=== PATIENT | female | born 1975 | race Caucasian/White ===

== ENCOUNTER → 2017-09-21 14:37 | Outpatient (CLI) | payer OTHER, SELFPAY ==
[2017-09-21 15:48] LABS: Free T4, Direct Thyroxine 0.91 ng/dL (0.78-2.19)
[2017-09-21 16:02] LABS: Thyroid Stimulating Hormone 2.78 uIU/mL (0.47-4.68)
[2017-09-23 15:46] LABS: Triiodothyronine T3 Total 77 ng/dL (76-181)
== END ==
PROVIDERS: Family Provider Internal Medicine; PCP Internal Medicine; Visit Provider Internal Medicine Endocrinology, Diabetes & Metabolism
DX: E05.90 Thyrotoxicosis, unspecified without thyrotoxic crisis or storm (principal)
CPT/HCPCS: 36415; 84439; 84443; 84480

== ENCOUNTER → 2017-11-24 13:32 | Outpatient (CLI) | payer OTHER, SELFPAY ==
[2017-11-24 14:40] LABS: Free T4, Direct Thyroxine 0.92 ng/dL (0.78-2.19)
[2017-11-24 14:54] LABS: Thyroid Stimulating Hormone 2.88 uIU/mL (0.47-4.68)
[2017-11-26 15:10] LABS: Triiodothyronine T3 Total 84 ng/dL (76-181)
== END ==
PROVIDERS: Family Provider Internal Medicine; PCP Internal Medicine; Visit Provider Internal Medicine Endocrinology, Diabetes & Metabolism
DX: E05.90 Thyrotoxicosis, unspecified without thyrotoxic crisis or storm (principal)
CPT/HCPCS: 36415; 84439; 84443; 84480

== ENCOUNTER → 2018-03-22 09:19 | Outpatient (CLI) | payer OTHER, SELFPAY ==
--- NOTE | 2018-03-22 | DI.MG.S_ITS ---
BILATERAL DIGITAL SCREENING MAMMOGRAM 3D/2D WITH CAD: 03/22/2018 CLINICAL: Routine screening. Comparison is made to exams dated: 01/03/2015 mammogram, 02/25/2014 mammogram, and 01/17/2013 mammogram - [facility]. The tissue of both breasts is extremely dense, which lowers the sensitivity of mammography. Current study was also evaluated with a Computer Aided Detection (CAD) system. No significant masses, calcifications, or other findings are seen in either breast. There has been no significant interval change. IMPRESSION: NEGATIVE There is no mammographic evidence of malignancy. A 1 year screening mammogram is recommended. This exam was interpreted at Station ID: [id number]. NOTE: For mammograms, a report in lay terms will be sent to the patient. Approximately 15% of breast malignancies will not be visualized mammographically. In the management of a palpable breast mass, a negative mammogram must not discourage biopsy of a clinically suspicious lesion. Electronically Signed By: Carlos Enrique helm/naima:03/22/2018 16:50:14 letter sent: Normal Exam ACR BI-RADS Category 1: Negative 3341F
== END ==
PROVIDERS: Family Provider Internal Medicine; PCP Internal Medicine; Visit Provider Internal Medicine
DX: Z12.31 Encounter for screening mammogram for malignant neoplasm of breast (principal)
CPT/HCPCS: 77063; 77067

== ENCOUNTER 2018-05-04 09:25 | Emergency (ER) | payer OTHER, SELFPAY ==
[2018-05-04 09:45] VITALS: BP 119/82; PULSE 86; RESP 16; TEMP 36.6; O2SAT 99
--- NOTE | 2018-05-04 10:20 | ED_ITS ---
HPI - Headache General Chief Complaint: Headache Stated Complaint: BAD HEADACHE, VOMITING, NUMBNESS RIGHT CHEEK Time Seen by Provider: 05/04/18 09:50 Source: patient Mode of arrival: ambulatory Limitations: no limitations History of Present Illness HPI Narrative: Patient is an otherwise healthy 42-year-old female here for evaluation of headache. She stated that the symptoms started this morning. He started very shortly after she woke up. She states she has had headaches in the past but not like this. States that was bilateral and a pressure. She also stated that she had some tingling on the right side of her face. Does have some sinus congestion. No sore throat. No fevers. No neck pain. Has not tried anything for symptoms prior to arrival. Related Data Home Medications Medication Instructions Recorded Confirmed pimecrolimus 1 applic TOPICAL BID 05/04/18 05/04/18 Allergies Allergy/AdvReac Type Severity Reaction Status Date / Time No Known Drug Allergies Allergy Unknown Unverified 07/20/17 12:45 [NO KNOWN DRUG ALLERGIES] Review of Systems Constitutional Denies fever(s), Reports headache(s) and Denies weakness ENT Ears, Nose, Mouth, and Throat: Denies vertigo, Denies dizziness, Reports headache(s), Denies neck pain, Denies disequilibrium, Reports sinus pain, Reports sinus pressure and Denies sore throat Cardiovascular Denies chest pain, Denies syncope and Denies dyspnea Respiratory Denies dyspnea Gastrointestinal Gastrointestinal: Denies abdominal pain, Denies nausea and Denies vomiting Genitourinary Denies dysuria Musculoskeletal Denies neck pain and Reports tingling (Right-sided face) Integumentary/Breasts Denies rash Neurologic Denies behavioral changes, Denies confusion, Denies vertigo, Denies dizziness, Denies syncope, Reports headache(s), Denies lack of coordination, Denies focal weakness, Denies other visual disturbances, Denies sensory deficit, Reports tingling (Right-sided face), Denies disequilibrium and Denies weakness Psychiatric Denies behavioral changes and Denies confusion Hematologic/Lymphatic Comments: Not on anticoagulation PFSH Medical History Healthy adult (Acute) Surgical History History of third molar tooth extraction Status post delivery (11/30/15) Family History Father Age: 72 Heart disease Mother Age: 73 High cholesterol Social History Smoking Status: Never smoker Exam Initial Vital Signs Initial Vital Signs: Vital Signs Temperature 97.8 F 05/04/18 09:45 Pulse Rate 86 05/04/18 09:45 Respiratory Rate 16 05/04/18 09:45 Blood Pressure 119/82 05/04/18 09:45 Pulse Oximetry 99 05/04/18 09:45 Const General: cooperative, healthy appearing, comfortable, well developed, well groomed and No acute distress Orientation: alert, awake and oriented x3 HENMT Head: normal to inspection and normocephalic Ears: TM's normal bilaterally Eyes Pupils: PERRL EOM: EOM intact bilaterally Neck Neck: no meningeal signs Resp Effort & Inspection: normal respiratory effort Auscultation: clear to auscultation bilaterally Cardio Rate: regular rate Pulses: radial pulses present GI Inspection: non-distended Skin Lesions: no lesions Rashes: no rashes Neuro General: alert, awake, oriented x3 and CN's II-XI intact bilaterally Cognition: normal cognition Speech: speech normal Gait: normal gait Motor: muscle tone normal throughout Sensory Exam: no sensory deficits noted and other Extrem General: normal to inspection and capillary refill normal Psych Appearance: grossly normal and well kempt Course Orders Ordered: ED Orders 05/04/18 11:04 CT head/brain wo con Stat Vital Signs - 8 hr 05/04/18 12:03 Pulse Rate 68 Respiratory Rate 18 Blood Pressure [Left Arm] 111/65 Pulse Oximetry 100 MDM - Headache Imaging Data CT scan - head: Radiologist's impression: [place] [id number] CT Scan Report Signed Patient: Linda Garza [facility]#: [id number] : 1975Acct:[id number] Age/Sex: 42 / FDate of Service: 05/04/18 Loc: ED Accession Number: [id number] Procedure: CT head/brain wo con Ordering Provider: Florian Snow D.O. PROCEDURE: CT HEAD/BRAIN WO CON INDICATIONS: headache TECHNIQUE: Noncontrast 4.5 mm thick angled axial sections acquired from the foramen magnum to the vertex, with coronal and sagittal reformats. For radiation dose reduction, the following was used: automated exposure control, adjustment of mA and/or kV according to patient size. COMPARISON: None. FINDINGS: Image quality: Streak artifact from adjacent bone partially obscures the ankur and posterior fossa. Otherwise excellent. CSF spaces: Basal cisterns are patent. No extra-axial fluid collections. Ventricles are normal in size and shape. Brain: No midline shift. No intracranial masses or hemorrhage. Villegas-white matter interface is normal. Mild subcortical and periventricular white matter hypoattenuation is nonspecific but can be seen with chronic microvascular ischemic changes. Skull and face: Calvarium and visualized facial bones are intact, without suspicious lesions. Sinuses: Visualized sinuses and mastoids are clear. IMPRESSION: No acute intracranial abnormality. Dictated by: Castro Hairston M.D. on 05/04/2018 at 11:05 MDM Narrative Medical decision making narrative: By the time I evaluated her here in the emergency department she reported a much improvement of her symptoms if not complete resolution. She was still having some tingling on the right side of her face but no sensory deficits within testing. Patient's head CT was negative. This was done within 6 hr of the onset of her symptoms. Had a discussion with her regarding her symptoms. We did discuss lumbar puncture. Informed her that this would complete the workup for subarachnoid hemorrhage however after the discussion the patient opted to not have a lumbar puncture. I do not feel like this is an unreasonable course of action given her symptoms. We did discuss decongestants because she was having some sinus congestion. Do not know the exact etiology of her headache however will hold on further workup for now. The patient was given return precautions. At the time of discharge she did report a complete resolution of all of her presenting symptoms. She expressed understanding and agreement this plan. Discharge Plan Departure Patient Disposition: Home Clinical Impression: Headache Discharge Date/Time: 05/04/18 12:13 Interventions: ED Discharge Assessment Last Done: 05/04/18 12:12 Instructions: DI for Headache Activity Restrictions/Additional Instructions: recommend taking Tylenol/Motrin for any headaches. Also recommend starting a decongestant such as Claritin like we discussed. Return to the emergency department for any new or worsening symptoms Like we discussed. Prescriptions: No Action pimecrolimus 1 % Cream 1 applic TOPICAL BID RF: 0
--- NOTE | 2018-05-04 11:04 | DI.CT.S_ITS ---
PROCEDURE: CT HEAD/BRAIN WO CON INDICATIONS: headache TECHNIQUE: Noncontrast 4.5 mm thick angled axial sections acquired from the foramen magnum to the vertex, with coronal and sagittal reformats. For radiation dose reduction, the following was used: automated exposure control, adjustment of mA and/or kV according to patient size. COMPARISON: None. FINDINGS: Image quality: Streak artifact from adjacent bone partially obscures the ankur and posterior fossa. Otherwise excellent. CSF spaces: Basal cisterns are patent. No extra-axial fluid collections. Ventricles are normal in size and shape. Brain: No midline shift. No intracranial masses or hemorrhage. Villegas-white matter interface is normal. Mild subcortical and periventricular white matter hypoattenuation is nonspecific but can be seen with chronic microvascular ischemic changes. Skull and face: Calvarium and visualized facial bones are intact, without suspicious lesions. Sinuses: Visualized sinuses and mastoids are clear. IMPRESSION: No acute intracranial abnormality. Dictated by: Castro Hairston M.D. on 05/04/2018 at 11:05 Approved by: Castro Hairston M.D. on 05/04/2018 at 11:20
[2018-05-04 12:03] VITALS: BP 111/65; PULSE 68; RESP 18; O2SAT 100
== END 2018-05-04 12:13 | disposition home or self-care (01) ==
PROVIDERS: Emergency Provider Emergency Medicine; Family Provider Internal Medicine; PCP Internal Medicine
DX: R51 Headache (principal)
CPT/HCPCS: 70450; 99282; 99284

== ENCOUNTER → 2018-08-23 08:31 | Outpatient (CLI) | payer OTHER, SELFPAY ==
--- NOTE | 2018-08-23 | DI.US.S_ITS ---
PROCEDURE: US THYROID INDICATIONS: THYROIDITIS TECHNIQUE: Real-time scanning was performed of the thyroid gland, with image documentation. COMPARISON: None. FINDINGS: Right: Thyroid lobe measures 5.1 x 1.5 x 1.5 cm, and is diffusely heterogeneous in echotexture. Moderate hyperemia. Left: Thyroid lobe measures 4.3 x 0.8 x 1.2 cm, and is diffusely heterogeneous in echotexture. Moderate hyperemia. Isthmus: 3.2 mm thick. IMPRESSION: Diffusely heterogeneous and hyperemic thyroid which can be associated with thyroiditis. Dictated by: Vernon GUNDERSON Interpreted: Noah Reyna MD on 08/23/2018 at 16:52 Approved by: Noah Reyna M.D. on 08/23/2018 at 17:20
== END ==
PROVIDERS: PCP Internal Medicine; Visit Provider Internal Medicine
DX: E06.9 Thyroiditis, unspecified (principal)
CPT/HCPCS: 76536

== ENCOUNTER → 2018-09-08 12:29 | Outpatient (CLI) | payer OTHER, SELFPAY ==
[2018-09-08 14:23] LABS: Free T4, Direct Thyroxine 0.77 ng/dL (0.78-2.19)
[2018-09-08 14:37] LABS: Thyroid Stimulating Hormone 3.49 uIU/mL (0.47-4.68)
[2018-09-12 14:45] LABS: Thyroid Peroxidase Antibodies 5 IU/mL (< 9)
[2018-09-12 16:13] LABS: Triiodothyronine T3 Total 94 ng/dL (76-181)
== END ==
PROVIDERS: PCP Internal Medicine; Visit Provider Internal Medicine Endocrinology, Diabetes & Metabolism
DX: E05.90 Thyrotoxicosis, unspecified without thyrotoxic crisis or storm (principal)
CPT/HCPCS: 36415; 83519; 84439; 84443; 84480; 86376

== ENCOUNTER → 2018-09-29 07:28 | Outpatient (CLI) | payer OTHER, SELFPAY ==
--- NOTE | 2018-09-29 | DI.US.S_ITS ---
PROCEDURE: US PELVIC COMPLETE INDICATIONS: ABDOMINAL PAIN TECHNIQUE: Real-time scanning was performed of the pelvic organs, with image documentation. Additional endovaginal scanning was necessary due to incomplete visualization of the adnexal and endometrial structures by transabdominal scanning. COMPARISON: None. FINDINGS: Transabdominal scanning: Limited scanning through the kidneys shows no hydronephrosis. No pathologic free abdominal or pelvic fluid. Endovaginal scanning: Uterus: Uterus is normal in size at 6.8 x 4.8 x 3.6 cm. The endometrium measures 6.7 mm in combined thickness. Ovaries: Normal ovaries bilaterally measuring 1.8 x 1.6 x 1.2 cm on the right and 2.3 x 1.8 x 2.3 cm on the left. IMPRESSION: No source for pelvic pain identified. Dictated by: Vernon GUNDERSON Interpreted: Eleni Guthrie MD on 09/29/2018 at 10:16 Approved by: Eleni Guthrie M.D. on 09/29/2018 at 15:59
--- NOTE | 2018-09-29 | DI.US.S_ITS ---
PROCEDURE: US ABDOMEN COMPLETE INDICATIONS: ABDOMINAL PAIN TECHNIQUE: Real-time scanning was performed of the abdominal and retroperitoneal organs, with image documentation. COMPARISON: [facility], US, ABDOMEN COMPLETE, 05/17/2017, 7:26. FINDINGS: Liver: Liver is normal in size and homogeneous in echotexture. Gallbladder: No findings of gallstones or sludge are seen. The gallbladder wall is not thickened, measuring 3 mm or less. No specific pericholecystic fluid is seen. The sonographic Castellon sign is negative. Biliary ducts: Intrahepatic bile ducts are non-dilated. Extrahepatic bile duct caliber measures 2-3 mm. Normal is 6-7 mm or less in diameter, or 10 mm or less post-cholecystectomy. Pancreas: Visualized portions of the pancreas are sonographically normal. Spleen: Spleen is normal in size and homogeneous in echotexture. Kidneys: Kidneys are normal in size. Right kidney measures 10.2 cm long; left kidney measures 11.5 cm long. No solid masses. There is mild to moderate right-sided hydronephrosis with pelvic caliectasis. This improves postvoid, but not does not resolve. There is a likely stone at the inferior pole of the right kidney that measures up to 5 mm. No left-sided hydronephrosis is seen. Aorta: Visualized aorta is normal in caliber at less than 3 cm. Iliacs: Proximal common iliac arteries are normal in caliber at less than 2.5 cm. IVC: Intrahepatic inferior vena cava is patent. Miscellaneous: No free abdominal fluid. The prevoid bladder volume is 353 cc. The postvoid bladder volume is 3 cc. Bilateral ureteral jets are seen into the bladder. IMPRESSION: Mild to moderate right-sided hydronephrosis, which improves postvoid, but does not resolve. Likely 4 mm stone at the inferior pole of the right kidney. Dictated by: Marlo Joseph M.D. on 09/29/2018 at 9:56 Approved by: Marlo Joseph M.D. on 09/29/2018 at 10:00
== END ==
PROVIDERS: PCP Internal Medicine; Visit Provider Internal Medicine
DX: R10.9 Unspecified abdominal pain (principal); N13.30 Unspecified hydronephrosis
CPT/HCPCS: 76700; 76856

== ENCOUNTER → 2018-10-06 11:07 | Outpatient (CLI) | payer OTHER, SELFPAY ==
[2018-10-06 13:29] LABS: Free T4, Direct Thyroxine 0.81 ng/dL (0.78-2.19)
[2018-10-06 13:44] LABS: Thyroid Stimulating Hormone 3.51 uIU/mL (0.47-4.68)
[2018-10-11 15:21] LABS: Triiodothyronine T3 Total 88 ng/dL (76-181)
== END ==
PROVIDERS: PCP Internal Medicine; Visit Provider Internal Medicine Endocrinology, Diabetes & Metabolism
DX: E05.90 Thyrotoxicosis, unspecified without thyrotoxic crisis or storm (principal); E03.8 Other specified hypothyroidism; E06.3 Autoimmune thyroiditis
CPT/HCPCS: 36415; 83519; 84439; 84443; 84480

== ENCOUNTER → 2018-11-06 10:56 | Outpatient (CLI) | payer OTHER, SELFPAY ==
[2018-11-06 12:12] LABS: Free T3, Triiodothyronine Free 2.93 pg/mL (2.77-5.27); Free T4, Direct Thyroxine 0.79 ng/dL (0.78-2.19)
[2018-11-06 12:25] LABS: Thyroid Stimulating Hormone 3.92 uIU/mL (0.47-4.68)
== END ==
PROVIDERS: PCP Internal Medicine; Visit Provider Internal Medicine Endocrinology, Diabetes & Metabolism
DX: E05.90 Thyrotoxicosis, unspecified without thyrotoxic crisis or storm (principal); E03.8 Other specified hypothyroidism; E06.3 Autoimmune thyroiditis
CPT/HCPCS: 36415; 84439; 84443; 84481

== ENCOUNTER → 2018-12-04 10:12 | Outpatient (CLI) | payer OTHER, SELFPAY ==
[2018-12-04 11:58] LABS: Free T4, Direct Thyroxine 0.95 ng/dL (0.78-2.19)
[2018-12-04 12:12] LABS: Thyroid Stimulating Hormone 3.28 uIU/mL (0.47-4.68)
[2018-12-22 10:42] LABS: Triiodothyronine T3 Total 87
== END ==
PROVIDERS: PCP Internal Medicine; Visit Provider Internal Medicine Endocrinology, Diabetes & Metabolism
DX: E05.90 Thyrotoxicosis, unspecified without thyrotoxic crisis or storm (principal); E03.8 Other specified hypothyroidism; E06.3 Autoimmune thyroiditis
CPT/HCPCS: 36415; 84439; 84443; 84480

== ENCOUNTER → 2019-01-02 10:53 | Outpatient (CLI) | payer OTHER, SELFPAY ==
[2019-01-02 12:19] LABS: Free T4, Direct Thyroxine 1.06 ng/dL (0.78-2.19)
[2019-01-02 12:33] LABS: Thyroid Stimulating Hormone 3.35 uIU/mL (0.47-4.68)
[2019-01-04 15:00] LABS: Triiodothyronine T3 Total 98 ng/dL (76-181)
== END ==
PROVIDERS: PCP Internal Medicine; Visit Provider Internal Medicine Endocrinology, Diabetes & Metabolism
DX: E05.90 Thyrotoxicosis, unspecified without thyrotoxic crisis or storm (principal); E03.8 Other specified hypothyroidism; E06.3 Autoimmune thyroiditis
CPT/HCPCS: 36415; 84439; 84443; 84480

== ENCOUNTER → 2019-02-08 08:39 | Outpatient (CLI) | payer OTHER, SELFPAY ==
[2019-02-08 10:18] LABS: Free T4, Direct Thyroxine 1.04 ng/dL (0.78-2.19)
[2019-02-08 10:31] LABS: Thyroid Stimulating Hormone 4.39 uIU/mL (0.47-4.68)
[2019-02-10 18:08] LABS: Triiodothyronine T3 Total 98 ng/dL (76-181)
== END ==
PROVIDERS: PCP Internal Medicine; Visit Provider Internal Medicine Endocrinology, Diabetes & Metabolism
DX: E05.90 Thyrotoxicosis, unspecified without thyrotoxic crisis or storm (principal); E03.8 Other specified hypothyroidism; E06.3 Autoimmune thyroiditis
CPT/HCPCS: 36415; 84439; 84443; 84480

== ENCOUNTER → 2019-04-05 08:05 | Outpatient (CLI) | payer OTHER, SELFPAY ==
--- NOTE | 2019-04-05 | DI.MG.S_ITS ---
BILATERAL DIGITAL SCREENING MAMMOGRAM 3D/2D WITH CAD: 04/05/2019 CLINICAL: Routine screening. Family history of breast cancer. Comparison is made to exams dated: 03/22/2018 mammogram - [facility], 01/03/2015 mammogram, and 02/25/2014 mammogram - [facility]. The tissue of both breasts is extremely dense, which lowers the sensitivity of mammography. Current study was also evaluated with a Computer Aided Detection (CAD) system. No significant masses, calcifications, or other findings are seen in either breast. There has been no significant interval change. IMPRESSION: NEGATIVE There is no mammographic evidence of malignancy. A 1 year screening mammogram is recommended. This exam was interpreted at Station ID: [id number]. NOTE: For mammograms, a report in lay terms will be sent to the patient. Approximately 15% of breast malignancies will not be visualized mammographically. In the management of a palpable breast mass, a negative mammogram must not discourage biopsy of a clinically suspicious lesion. Electronically Signed By: Lan terrazas/naima:04/05/2019 09:22:46 letter sent: Normal Exam ACR BI-RADS Category 1: Negative 3341F
== END ==
PROVIDERS: PCP Internal Medicine; Visit Provider Internal Medicine
DX: Z12.31 Encounter for screening mammogram for malignant neoplasm of breast (principal); Z80.3 Family history of malignant neoplasm of breast
CPT/HCPCS: 77063; 77067

== ENCOUNTER → 2019-06-27 07:25 | Outpatient (CLI) | payer OTHER, SELFPAY ==
[2019-06-27 08:54] LABS: Free T4, Direct Thyroxine 0.75 ng/dL (0.78-2.19)
[2019-06-28 06:36] LABS: Triiodothyronine T3 Total 94 ng/dL (71-180)
== END ==
PROVIDERS: PCP Internal Medicine; Referring Provider Internal Medicine Endocrinology, Diabetes & Metabolism; Visit Provider Internal Medicine Endocrinology, Diabetes & Metabolism
DX: E05.90 Thyrotoxicosis, unspecified without thyrotoxic crisis or storm (principal); E03.8 Other specified hypothyroidism; E06.3 Autoimmune thyroiditis
CPT/HCPCS: 36415; 84439; 84443; 84480

== ENCOUNTER 2019-12-16 11:19 | Emergency (ER) | payer OTHER, SELFPAY ==
[2019-12-16] VITALS (7 sets, daily range): BP systolic 100–145; BP diastolic 55–73; PULSE 84–105; RESP 20; TEMP 37.9; O2SAT 96–100; BMI 19.7
--- NOTE | 2019-12-16 11:33 | ED_ITS ---
HPI - Abdominal Pain General Chief Complaint: Abdominal Pain Stated Complaint: abdominal pain diverticulitis per phys Time Seen by Provider: 12/16/19 11:22 Source: patient Mode of arrival: Ambulatory Limitations: no limitations History of Present Illness HPI narrative: Patient is a 44-year-old female who presents with severe abdominal pain. She was seen evaluated at [facility] where she had a CT and blood work done at 9:[address] showed diverticulitis without abscess or perforation she was discharged home with antibiotics however on the drive she has severe intense pain in emergency department. She has been having pain off and on for about a week but it seemed to get worse last evening. She is noted to have a low-grade fever here in the emergency department MD complaint: abdominal pain Onset (ago): day(s) Pain Consistency: constant Severity scale (1-10): >10 Quality: stabbing and sharp Radiation: RLQ Migration to: no migration Relieving factors: nothing Exacerbating factors: nothing Related Data Home Medications Medication Instructions Recorded Confirmed pimecrolimus 1 applic TOPICAL BID 05/04/18 05/04/18 Previous Rx's Medication Instructions Recorded ketorolac 10 mg PO TID PRN #10 tab 12/16/19 ondansetron 4 mg PO Q8H PRN #10 tab 12/16/19 Allergies Allergy/AdvReac Type Severity Reaction Status Date / Time No Known Drug Allergies Allergy Unknown Unverified 07/20/17 12:45 [NO KNOWN DRUG ALLERGIES] Review of Systems Review of Systems Narrative: GENERAL: Denies chills, fatigue, malaise, fever, sweats, travel HEENT: Denies sinus pain, ear pain, sore throat, difficulty swallowing, neck pain RESPIRATORY: Denies dyspnea, cough, wheezing, hemoptysis, sputum. CARDIOVASCULAR: Denies chest pain, palpitations, orthopnea, edema GASTROINTESTINAL: See HPI : Denies dysuria, frequency, incontinence, hematuria, urinary retention, flank pain. MUSCULOSKELETAL: Denies weakness, joint pain, or bony pain SKIN: No rash, no erythema, no pruritus NEUROLOGIC: Denies weakness, dizziness, headache, numbness, change in speech, confusion PSYCHIATRIC: No concerning psychosocial issues. 12 point review of systems is negative except for those stated above and HPI Patient History Medical History Healthy adult (Acute) Surgical History History of third molar tooth extraction Status post delivery (11/30/15) Family History Father Age: 73 Heart disease Mother Age: 74 High cholesterol Social History Smoking Status: Never smoker Smoking Status: Never smoker Substance Use Type: does not use Exam Initial Vital Signs Initial Vital Signs: Vital Signs Temperature 100.2 F H 12/16/19 11:30 Pulse Rate 100 H 12/16/19 11:30 Respiratory Rate 20 12/16/19 11:30 Blood Pressure 145/73 H 12/16/19 11:30 Pulse Oximetry 99 12/16/19 11:30 GENERAL: Crying female appears in severe pain HEENT: Head atraumatic,EOMI, pupils reactive, face symmetric, moist mucous membranes CARDIOVASCULAR: Regular rate and rhythm without murmurs, rubs or gallops. RESPIRATORY: Breath sounds equal bilaterally, no wheezes rales or rhonchi. ABDOMEN: Soft, tender all across the lower abdomen no distention more tender on right lower quadrant than left EXTREMITIES: Normal range of motion, no clubbing or edema. Neurovascularly intact NEUROLOGICAL: Alert and oriented x4.Normal gait and speech. SKIN: Warm, dry, no laceration, no petechiae, no rashes or lesions. Course Orders Ordered: ED Orders 12/16/19 11:28 Complete Blood Count AUTO DIFF Stat Comprehensive Metabolic Panel Stat Lactate (Lactic Acid) Stat Lipase Stat 12/16/19 11:44 CT abdomen pelvis wo con Stat 12/16/19 11:58 Urine Culture Stat Urine Microscopic Stat 12/16/19 12:10 Blood Culture Stat Discontinued Medications Sodium Chloride (Normal Saline 0.9%) 1,000 mls @ 150 mls/hr IV CONT JAKE Last Admin: 12/16/19 11:50 Dose: 150 mls/hr Documented by: ALE Levofloxacin (Levaquin) 750 mg in 150 mls @ 100 mls/hr IV NOW ONE Stop: 12/16/19 12:59 Last Infusion: 12/16/19 15:09 Dose: 0 mls/hr Documented by: Admin: 12/16/19 13:38 Dose: 100 mls/hr Documented by: ALE Metronidazole (Flagyl) 500 mg in 100 mls @ 100 mls/hr IV NOW ONE Stop: 12/16/19 12:30 Last Infusion: 12/16/19 13:30 Dose: 0 mls/hr Documented by: Admin: 12/16/19 11:50 Dose: 100 mls/hr Documented by: ALE Ketorolac Tromethamine (Toradol) 30 mg IV NOW ONE Stop: 12/16/19 12:48 Last Admin: 12/16/19 12:54 Dose: 30 mg Documented by: ALE Morphine Sulfate (Morphine) 4 mg IV NOW ONE Stop: 12/16/19 11:30 Last Admin: 12/16/19 11:35 Dose: 4 mg Documented by: ALE Ondansetron HCl (Zofran) 4 mg IV NOW ONE Stop: 12/16/19 11:39 Last Admin: 12/16/19 11:50 Dose: 4 mg Documented by: ALE Consultations Time: 11:45 Vital Signs Vital signs: Vital Signs - 8 hr 12/16/19 11:30 12/16/19 12:45 12/16/19 13:00 Temperature 100.2 F H Pulse Rate 100 H 105 H 84 Respiratory Rate 20 Blood Pressure 145/73 H 116/59 L Pulse Oximetry 99 96 100 12/16/19 13:30 12/16/19 14:00 12/16/19 14:30 Temperature Pulse Rate 92 H 97 H 100 H Respiratory Rate Blood Pressure 103/56 L 109/59 L 105/55 L Pulse Oximetry 96 96 96 12/16/19 15:00 Temperature Pulse Rate 95 H Respiratory Rate Blood Pressure 100/55 L Pulse Oximetry 97 MDM - Abdominal Pain Lab Data Attestation: I reviewed the patient's lab results. Result diagrams: 12/16/19 11:28 12/16/19 11:28 Labs: Lab Results 12/16/19 12/16/19 12/16/19 Range/Units 11:28 11:28 11:28 WBC 17.6 H (4.5-11.0) X10^3/uL RBC 4.67 (4.0-5.2) X10^6/uL Hgb 14.3 (12.0-16.0) g/dL Hct 42.8 (36-46) % MCV 91.5 (80-100) fL MCH 30.5 (26-34) PG MCHC 33.3 (30-36) % RDW 12.3 (11.6-14.8) % Plt Count 307 (150-400) X10^3/uL Neut % (Auto) 86.7 H (50-75) % Lymph % (Auto) 5.5 L (25-40) % [place] % (Auto) 7.4 (3-14) % Eos % (Auto) 0.1 L (2-4) % Baso % (Auto) 0.3 (0-2) % Neut # (Auto) 57759 H (2899-2903) /uL Lymph # (Auto) 1000 L (5854-4389) /uL [place] # (Auto) 1300 H (0-900) /uL Eos # (Auto) 0 (0-450) /uL Baso # (Auto) 0 (0-100) /uL Sodium 137 (137-145) mmol/L Potassium 3.6 (3.4-5.1) mmol/L Chloride 102 (98-107) mmol/L Carbon Dioxide 26 (22-32) mmol/L BUN 11 (7-17) mg/dL Creatinine 0.67 (0.52-1.04) mg/dL Estimated GFR > 60.0 (>60) mL/min BUN/Creatinine Ratio 16.4 (6-22) Glucose 111 H (70-100) mg/dL Lactate 1.9 (0.7-2.1) mmol/L Calcium 9.6 (8.4-10.2) mg/dL Total Bilirubin 1.6 H (0.2-1.3) mg/dL AST 23 (14-36) IU/L ALT 17 (<35) IU/L Alkaline Phosphatase 75 (38-126) U/L Total Protein 8.3 H (6.3-8.2) g/dL Albumin 4.8 (3.5-5.0) g/dL Globulin 3.5 (1.7-4.1) g/dL Albumin/Globulin Ratio 1.4 (1.0-2.8) Lipase 87 (23-300) U/L Urine RBC (0-5/HPF) Urine WBC (0-5/HPF) Ur Squamous Epith Cells (0-5/HPF) Urine Bacteria (None) Ur Culture Indicated? 12/16/19 Range/Units 11:58 WBC (4.5-11.0) X10^3/uL RBC (4.0-5.2) X10^6/uL Hgb (12.0-16.0) g/dL Hct (36-46) % MCV (80-100) fL MCH (26-34) PG MCHC (30-36) % RDW (11.6-14.8) % Plt Count (150-400) X10^3/uL Neut % (Auto) (50-75) % Lymph % (Auto) (25-40) % [place] % (Auto) (3-14) % Eos % (Auto) (2-4) % Baso % (Auto) (0-2) % Neut # (Auto) (6315-1103) /uL Lymph # (Auto) (4221-5158) /uL [place] # (Auto) (0-900) /uL Eos # (Auto) (0-450) /uL Baso # (Auto) (0-100) /uL Sodium (137-145) mmol/L Potassium (3.4-5.1) mmol/L Chloride (98-107) mmol/L Carbon Dioxide (22-32) mmol/L BUN (7-17) mg/dL Creatinine (0.52-1.04) mg/dL Estimated GFR (>60) mL/min BUN/Creatinine Ratio (6-22) Glucose (70-100) mg/dL Lactate (0.7-2.1) mmol/L Calcium (8.4-10.2) mg/dL Total Bilirubin (0.2-1.3) mg/dL AST (14-36) IU/L ALT (<35) IU/L Alkaline Phosphatase (38-126) U/L Total Protein (6.3-8.2) g/dL Albumin (3.5-5.0) g/dL Globulin (1.7-4.1) g/dL Albumin/Globulin Ratio (1.0-2.8) Lipase (23-300) U/L Urine RBC 0-1/hpf (0-5/HPF) Urine WBC 1-5/hpf (0-5/HPF) Ur Squamous Epith Cells 0-1 /hpf (0-5/HPF) Urine Bacteria Occasional (0-1) (None) Ur Culture Indicated? Specimen cultured Point of care testing: Urine Dip Bedside Urine Glucose Negative Bedside Urine Bilirubin - Negative Bedside Urine Ketone + 15 Urine Specific [place] 1.005 Bedside Urine Occult Blood + Bedside Urine pH 7.5 Bedside Urine Protein - Negative Bedside Urine Urobilinogen - Negative Bedside Urine Nitrite - Negative Bedside Urine Leukocytes ++ [address] scan - abdomen/pelvis: Radiologist's Impression: PROCEDURE: CT ABDOMEN PELVIS WO CON INDICATIONS: increased pain known diverticulitis TECHNIQUE: 5 mm thick sections acquired from the diaphragms to the symphysis. 5 mm coronal and sagittal reformats were performed. For radiation dose reduction, the following was used: automated exposure control, adjustment of mA and/or kV according to patient size. COMPARISON: [facility], [place], US ABDOMEN COMPLETE, 09/29/2018, 8:11. [facility], [place], US PELVIC COMPLETE, 09/29/2018, 8:05. FINDINGS: Image quality: Excellent. ABDOMEN: Lung bases: Lung bases are clear. Heart size is normal. Solid organs: Liver is normal in size. Gallbladder demonstrates no significant abnormality. Pancreas is normal in size. Spleen is normal in size. No adrenal nodules. Both kidneys are normal in size, without hydronephrosis or nephrolithiasis. Peritoneum and bowel: Oral contrast is seen within the distal small bowel and within the colon, which was previously administered at another institution. Focal wall thickening is seen involving the distal descending colon, with moderate surrounding inflammatory change. Diverticula formation can be seen within this region. No free air is seen to suggest perforation. No loculated fluid collection is seen to suggest abscess. Nodes and vessels: No retroperitoneal or mesenteric adenopathy by size criteria. Aorta and inferior vena cava are normal in size. Miscellaneous: A mild periumbilical hernia is seen, containing fat. PELVIS: Genitourinary: Bladder wall thickness is normal. The uterus appears normal for age. No adnexal masses are seen. Miscellaneous: No inguinal hernias or adenopathy. Bones: No suspicious bony lesions. No vertebral body compression fractures. Mild levoconvex scoliotic curvature is noted. IMPRESSION: These imaging findings are most compatible with moderate diverticulitis of the descending colon. No josh findings of perforation or abscess can be seen. Incidental note is made of: Fat containing periumbilical hernia Levoconvex scoliotic curvature Dictated by: Marlo Joseph M.D. on 12/16/2019 at 11:38 MDM Narrative Medical decision making narrative: After discussion with surgery about whether not to raise CT decision was made to repeat CT due to patient's severe pain and discomfort. No sign of perforation. She does have leukocytosis and low-grade fever she is given IV antibiotics. Pain improved with morphine however started to come back. Patient is quite nervous about COVID-19 and being in a healthcare facility according to her . Pain improved significantly after Toradol. She is given IV antibiotics no sign of perforation, the pain is now controlled. At this time recommend home with antibiotics which were previously prescribed and pain control. Patient agrees with this plan. Discharge Plan Departure Patient Disposition: Home Clinical Impression: Diverticulitis Discharge Date/Time: 12/16/19 15:31 Instructions: DI for Diverticulitis Activity Restrictions/Additional Instructions: *You have been diagnosed with diverticulitis *What to do: Your pain should start improving with antibiotic *Continue to take medications as directed--> SENT TO [facility] [place] Ketorolac 10 mg every 8 hours if needed for pain do not combine with other NSAIDs is ibuprofen, Aleve, naproxen, Advil etc Zofran 4 mg every 8 hours if needed for nausea vomiting *Follow up with your primary care provider in 2-3 days *Return to ER if you should have worsening pain, bloody stool, persistent vomiting or any new, worsening or concerning symptoms Prescriptions: New ketorolac 10 mg tablet 10 mg PO TID PRN (Reason: pain) Qty: 10 RF: 0 ondansetron 4 mg tablet,disintegrating 4 mg PO Q8H PRN (Reason: nausea and vomiting) Qty: 10 RF: 0 No Action pimecrolimus 1 % Cream 1 applic TOPICAL BID RF: 0 Referrals: Mana Bach ARNP [Primary Care Provider] -
[2019-12-16] MEDS: MORPHINE 4 MG/ML INJ IV (11:35)
[2019-12-16 11:37] LABS: Add Manual Diff / Slide Review NO; Basophils Absolute Auto 0 /uL (0-100); Basophils Percent Auto 0.3 % (0-2); Eosinophils Absolute Auto 0 /uL (0-450); Eosinophils Percent Auto 0.1 % (2-4); Hematocrit 42.8 % (36-46); Hemoglobin 14.3 g/dL (12.0-16.0); Lymphocytes Absolute Auto 1000 /uL (1100-4500); Lymphocytes Percent Auto 5.5 % (25-40); Mean Corpuscular HGB Conc 33.3 % (30-36); Mean Corpuscular Hemoglobin 30.5 PG (26-34); Mean Corpuscular Volume 91.5 fL (80-100); Monocytes Absolute Auto 1300 /uL (0-900); Monocytes Percent Auto 7.4 % (3-14); Neutrophils Absolute Auto 15300 /uL (1500-7000); Neutrophils Percent Auto 86.7 % (50-75); Platelet Count 307 X10^3/uL (150-400); Red Blood Cell Count 4.67 X10^6/uL (4.0-5.2); Red Cell Distribution Width 12.3 % (11.6-14.8); White Blood Cell Count 17.6 X10^3/uL (4.5-11.0)
--- NOTE | 2019-12-16 11:44 | DI.CT.S_ITS ---
PROCEDURE: CT ABDOMEN PELVIS WO CON INDICATIONS: increased pain known diverticulitis TECHNIQUE: 5 mm thick sections acquired from the diaphragms to the symphysis. 5 mm coronal and sagittal reformats were performed. For radiation dose reduction, the following was used: automated exposure control, adjustment of mA and/or kV according to patient size. COMPARISON: [facility], , US ABDOMEN COMPLETE, 09/29/2018, 8:11. [facility], , US PELVIC COMPLETE, 09/29/2018, 8:05. FINDINGS: Image quality: Excellent. ABDOMEN: Lung bases: Lung bases are clear. Heart size is normal. Solid organs: Liver is normal in size. Gallbladder demonstrates no significant abnormality. Pancreas is normal in size. Spleen is normal in size. No adrenal nodules. Both kidneys are normal in size, without hydronephrosis or nephrolithiasis. Peritoneum and bowel: Oral contrast is seen within the distal small bowel and within the colon, which was previously administered at another institution. Focal wall thickening is seen involving the distal descending colon, with moderate surrounding inflammatory change. Diverticula formation can be seen within this region. No free air is seen to suggest perforation. No loculated fluid collection is seen to suggest abscess. Nodes and vessels: No retroperitoneal or mesenteric adenopathy by size criteria. Aorta and inferior vena cava are normal in size. Miscellaneous: A mild periumbilical hernia is seen, containing fat. PELVIS: Genitourinary: Bladder wall thickness is normal. The uterus appears normal for age. No adnexal masses are seen. Miscellaneous: No inguinal hernias or adenopathy. Bones: No suspicious bony lesions. No vertebral body compression fractures. Mild levoconvex scoliotic curvature is noted. IMPRESSION: These imaging findings are most compatible with moderate diverticulitis of the descending colon. No josh findings of perforation or abscess can be seen. Incidental note is made of: Fat containing periumbilical hernia Levoconvex scoliotic curvature Dictated by: Marlo Joseph M.D. on 12/16/2019 at 11:38 Approved by: Marlo Joseph M.D. on 12/16/2019 at 11:42
[2019-12-16] MEDS: ONDANSETRON 4 MG/2 ML INJ IV (11:50)
[2019-12-16] MEDS: metroNIDAZOLE 500 MG/100 ML PIGGYBACK 100 MG IV (11:50)
[2019-12-16] MEDS: SODIUM CHLORIDE 0.9% 1,000 ML 150 ML IV (11:50)
[2019-12-16 11:52] LABS: Alanine Aminotransferase 17 IU/L (<35); Albumin 4.8 g/dL (3.5-5.0); Albumin Globulin Ratio 1.4 (1.0-2.8); Alkaline Phosphatase 75 U/L (38-126); Aspartate Aminotransferase 23 IU/L (14-36); BUN Creatinine Ratio 16.4 (6-22); Bilirubin Total 1.6 mg/dL (0.2-1.3); Blood Urea Nitrogen 11 mg/dL (7-17); Calcium 9.6 mg/dL (8.4-10.2); Carbon Dioxide 26 mmol/L (22-32); Chloride 102 mmol/L (98-107); Estimated Glomerular Filt Rate > 60.0 mL/min (>60); Globulin 3.5 g/dL (1.7-4.1); Glucose 111 mg/dL (70-100); HEMOLYSIS < 15 (0-50); Lipase 87 U/L (23-300); Potassium 3.6 mmol/L (3.4-5.1); Sodium 137 mmol/L (137-145); Total Protein 8.3 g/dL (6.3-8.2)
[2019-12-16 11:53] LABS: Lactate (Lactic Acid) 1.9 mmol/L (0.7-2.1)
[2019-12-16 12:49] LABS: Bacteria Urine Occasional (0-1); Culture Indicated Urine Specimen Cultured; RBC Urine 0-1/HPF (0-5/HPF); Squamous Epithelial Cell Urine 0-1 /HPF (0-5/HPF); WBC Urine 1-5/HPF (0-5/HPF)
[2019-12-16] MEDS: KETOROLAC 60 MG/2 ML VIAL 30 MG IV (12:54)
[2019-12-16] MEDS: levoFLOXacin 750 MG/150 ML PIGGYBACK 100 MG IV (13:38)
== END 2019-12-16 15:31 | disposition home or self-care (01) ==
PROVIDERS: Emergency Provider Emergency Medicine; PCP Internal Medicine
DX: K57.92 Diverticulitis of intestine, part unspecified, without perforation or abscess without bleeding (principal); R50.9 Fever, unspecified
CPT/HCPCS: 36415; 74176; 80053; 81003; 81015; 83605; 83690; 85025; 87040; 87086; 96365; 96366; 96367; 96375; 99284; J1885; J1956; J2270; J2405

== ENCOUNTER 2019-12-18 06:20 | Emergency (ER) | payer OTHER, SELFPAY ==
[2019-12-18 06:30] VITALS: BP 109/58; PULSE 79; RESP 18; TEMP 36.9; O2SAT 99; BMI 19.7
--- NOTE | 2019-12-18 06:30 | ED_ITS ---
HPI - Abdominal Pain General Chief Complaint: Back Pain/Injury Stated Complaint: Meds aren't working . took 2 hours ago Time Seen by Provider: 12/18/19 06:20 Source: patient Mode of arrival: Ambulatory Limitations: no limitations History of Present Illness HPI narrative: 44-year-old female nonsmoker with history of recently diagnosed diverticulitis presents with a chief complaint of severe left-sided pain that is no longer being controlled by her pain medications. She was seen and evaluated at an outside facility a few days ago and had imaging and lab work suggesting diverticulitis. She was started on antibiotics and during the drive home her pain worsened and she came here for further evaluation. They did not repeat imaging but labs demonstrated elevated white blood cell, she was given fluids and had tremendous improvement with Toradol. There was a consultation with General surgery and there is agreement to not repeat imaging. She has continued to take her ketorolac but does not take the hydrocodone she was given as it makes her nauseated. She currently feels a bit nauseated but has had no vomiting. She denies any fever or chills. She denies any significant difficulty with urination. She does find herself pacing and unable to find a position comfort but also complains of significantly worsening pain with palpation of the left side her abdomen. MD complaint: abdominal pain and flank pain Onset (ago): hour(s) Pain Consistency: constant Location: L flank Severity: severe Quality: cramping and stabbing Radiation: L flank Migration to: no migration Relieving factors: rest Exacerbating factors: movement Associated symptoms: nausea Treatments prior to arrival: NSAIDs Related Data Home Medications Medication Instructions Recorded Confirmed pimecrolimus 1 applic TOPICAL BID 05/04/18 05/04/18 Previous Rx's Medication Instructions Recorded ketorolac 10 mg PO TID PRN #10 tab 12/16/19 ondansetron 4 mg PO Q8H PRN #10 tab 12/16/19 Allergies Allergy/AdvReac Type Severity Reaction Status Date / Time No Known Drug Allergies Allergy Unknown Unverified 07/20/17 12:45 [NO KNOWN DRUG ALLERGIES] Review of Systems Constitutional Constitutional: Denies chills, Denies fatigue, Denies fever(s), Denies frequent falls, Denies lethargy and Denies weakness Eyes Eyes: Denies change in vision, Denies eye discharge, Denies irritation and Denies loss of vision ENT Ears, Nose, Mouth, and Throat: Denies change in voice, Denies dizziness, Denies neck pain, Denies sore throat and Denies throat swelling Cardiovascular Cardiovascular: Denies chest pain, Denies irregular heart rhythm, Denies lightheadedness, Denies palpitations, Denies dyspnea, Denies dyspnea on exertion and Denies orthopnea Respiratory Respiratory: Denies cough, Denies dyspnea, Denies dyspnea on exertion and Denies wheezing Gastrointestinal Gastrointestinal: Reports abdominal pain, Denies change in bowel habits, Denies diarrhea, Reports nausea and Denies vomiting Musculoskeletal Musculoskeletal: Denies neck pain and Denies numbness Integumentary/Breasts Skin/Breast: Denies pruritus, Denies erythema, Denies rash and Denies wounds Neurologic Neurologic: Denies behavioral changes, Denies confusion, Denies dizziness, Denies frequent falls, Denies loss of vision, Denies numbness and Denies weakness Psychiatric Psychiatric: Denies anxiety, Denies behavioral changes, Denies confusion, Denies depression, Denies homicidal ideation and Denies suicidal ideation Endocrine Endocrine: Denies fatigue, Denies flushing and Denies palpitations Hematologic/Lymphatic Hematologic/Lymphatic: Denies easy bruising Allergic/Immunologic Allergic/Immunologic: Denies urticaria, Denies throat swelling and Denies wheezing Patient History Medical History Healthy adult (Acute) Surgical History History of third molar tooth extraction Status post delivery (11/30/15) Family History Father Age: 73 Heart disease Mother Age: 74 High cholesterol Social History Smoking Status: Never smoker Smoking Status: Never smoker Substance Use Type: does not use Exam Narrative Exam Narrative: GENERAL: [44] year old patient appears stated age. Well- nourished, well-developed patient, obviously in pain, pacing and clutching her left flank, very anxious HEAD: Atraumatic. Normocephalic. EYES: Pupils equal round and reactive. Extraocular motions intact. No scleral icterus. No injection or drainage. ENT: Nose without bleeding, purulent drainage. Throat without erythema, tonsillar hypertrophy or exudate. Airway patent. NECK: Trachea midline. Non tender CARDIOVASCULAR: Regular rate and rhythm without murmurs, gallops, or rubs. RESPIRATORY: Clear to auscultation. Breath sounds equal bilaterally. No wheezes, rales, or rhonchi. GASTROINTESTINAL: Abdomen soft, point tenderness on her left lower abdomen., nondistended. EXTREMITIES: No edema or joint tenderness. BACK: Nontender without deformity or crepitance. No flank tenderness. NEURO: AOx3. SKIN: No rash or erythema of visible areas Initial Vital Signs Initial Vital Signs: Vital Signs Temperature 98.5 F 12/18/19 06:30 Pulse Rate 79 12/18/19 06:30 Respiratory Rate 18 12/18/19 06:30 Blood Pressure 109/58 L 12/18/19 06:30 Pulse Oximetry 99 12/18/19 06:30 Course Course Course Narrative: patient's pain resolved nearly as soon as we were done taking vitals. Her abdomen is soft. Vitals are reassuring. I offered labs, IV, fluids and imaging. We had a lengthy discussion and she states she would prefer to go home and take her vicodin which she had not been taking. She was given return precautions and is in agreement with plan. Vital Signs Vital signs: Vital Signs - 8 hr 12/18/19 06:30 Temperature 98.5 F Pulse Rate 79 Respiratory Rate 18 Blood Pressure 109/58 L Pulse Oximetry 99 Discharge Plan Departure Patient Disposition: Home Clinical Impression: Diverticulitis Discharge Date/Time: 12/18/19 06:53 Instructions: DI for Diverticulitis Activity Restrictions/Additional Instructions: *You have been diagnosed with [pain from diverticulitis ] *What to do: *Take medications as directed *Follow up with your primary care provider in 2-3 days, call for an appointment. Let them know you were seen in the Emergency Department and that we ask that you be seen in follow up *Return to ER if you should have any new, worsening or concerning symptoms, such as [ worsening pain, fever > 101F, persistent vomiting, or any other bothersome symptoms] Prescriptions: No Action pimecrolimus 1 % Cream 1 applic TOPICAL BID RF: 0 ketorolac 10 mg tablet 10 mg PO TID PRN (Reason: pain) Qty: 10 RF: 0 ondansetron 4 mg tablet,disintegrating 4 mg PO Q8H PRN (Reason: nausea and vomiting) Qty: 10 RF: 0 Referrals: Mana Bach ARNP [Primary Care Provider] -
== END 2019-12-18 06:53 | disposition home or self-care (01) ==
PROVIDERS: Emergency Provider Emergency Medicine; PCP Internal Medicine
DX: K57.92 Diverticulitis of intestine, part unspecified, without perforation or abscess without bleeding (principal)
CPT/HCPCS: 99281

== ENCOUNTER 2020-01-06 00:34 | Emergency (ER) | payer OTHER, SELFPAY ==
[2020-01-06 00:44] VITALS: BP 119/66; PULSE 77; RESP 18; TEMP 36.6; O2SAT 99
--- NOTE | 2020-01-06 00:44 | ED.GENADULT ---
HPI - General Adult General Chief complaint: Urogenital-Male Stated complaint: UTI Time Seen by Provider: 01/06/20 00:36 Source: patient Mode of arrival: Ambulatory Limitations: no limitations History of Present Illness HPI narrative: 44-year-old female here for evaluation a pain/throbbing sensation in her urethra. She states the symptoms started earlier this evening. She does feel that urinating improves the symptoms were short period of time. She does have urinary urgency and hesitancy. No fevers. Also has right-sided flank pain that she states started around the time of her other symptoms. Denies any blood in her urine. No vaginal symptoms. No bowel symptoms. No nausea or vomiting. Has not tried anything for symptoms prior to arrival. Patient denies any concern for sexually transmitted disease. Related Data Home Medications Medication Instructions Recorded Confirmed pimecrolimus 1 applic TOPICAL BID 05/04/18 05/04/18 Previous Rx's Medication Instructions Recorded ketorolac 10 mg PO TID PRN #10 tab 12/16/19 ondansetron 4 mg PO Q8H PRN #10 tab 12/16/19 phenazopyridine [Pyridium] 100 mg PO TID PRN #6 tab 01/06/20 Allergies Allergy/AdvReac Type Severity Reaction Status Date / Time No Known Drug Allergies Allergy Unknown Unverified 07/20/17 12:45 [NO KNOWN DRUG ALLERGIES] Review of Systems Constitutional Constitutional: Denies fever(s) Cardiovascular Cardiovascular: Denies chest pain and Denies dyspnea Respiratory Respiratory: Denies dyspnea Gastrointestinal Gastrointestinal: Denies abdominal pain, Denies nausea and Denies vomiting Genitourinary Genitourinary: Reports urinary hesitancy, Denies urinary incontinence and Reports urinary urgency Genitourinary: Denies urinary incontinence, Reports urinary hesitancy, Reports urinary urgency and Denies vaginal discharge Musculoskeletal Musculoskeletal: Denies myalgias Integumentary/Breasts Skin/Breast: Denies rash Neurologic Neurologic: Denies behavioral changes Psychiatric Psychiatric: Denies behavioral changes Hematologic/Lymphatic Hematologic/Lymphatic: Denies easy bleeding and Denies easy bruising Allergic/Immunologic Allergic/Immunologic: Denies urticaria Patient History Medical History Healthy adult (Acute) Surgical History History of third molar tooth extraction Status post delivery (11/30/15) Family History Father Age: 73 Heart disease Mother Age: 74 High cholesterol Social History Smoking Status: Never smoker Smoking Status: Never smoker alcohol intake frequency: a few times a week Alcohol type: wine Substance Use Type: does not use Exam Initial Vital Signs Initial Vital Signs: Vital Signs Temperature 97.9 F 01/06/20 00:44 Pulse Rate 77 01/06/20 00:44 Respiratory Rate 18 01/06/20 00:44 Blood Pressure 119/66 01/06/20 00:44 Pulse Oximetry 99 01/06/20 00:44 Const General: cooperative and comfortable Limitations: mental status not altered HENMT Head: normal to inspection and normocephalic Resp Effort & Inspection: normal respiratory effort Cardio Rate: regular rate GI Inspection: non-distended Back/Spine/Pelvis Back: No CVA tenderness Psych Appearance: grossly normal and well kempt Course Orders Ordered: ED Orders 01/06/20 00:40 Test Urine Stat Urinalysis and Microscopic Stat Discontinued Medications Lidocaine HCl (Xylocaine Jelly 2%) 1 applic TOP NOW ONE Stop: 01/06/20 01:23 Last Admin: 01/06/20 01:27 Dose: 1 applic Documented by: SHERIDAN Phenazopyridine HCl (Pyridium) 100 mg PO NOW ONE Stop: 01/06/20 01:23 Last Admin: 01/06/20 01:27 Dose: 100 mg Documented by: SHERIDAN Vital Signs Vital signs: Vital Signs - 8 hr 01/06/20 00:44 Temperature 97.9 F Pulse Rate 77 Respiratory Rate 18 Blood Pressure 119/66 Pulse Oximetry 99 Medical Decision Making Lab Data Lab results reviewed: Yes I reviewed the patient's lab results. Labs: Lab Results 01/06/20 01/06/20 Range/Units 00:40 00:40 Urine Color Yellow Urine Appearance Clear Urine pH 7.0 (4.5-8.0) Ur Specific [place] 1.010 (1.000-1.035) Urine Protein Negative (Negative) Urine Glucose (UA) Negative (Negative) g/dL Urine Ketones Negative (NEGATIVE) Urine Occult Blood 1+ H (Negative) Urine Nitrate Negative (Negative) Urine Bilirubin Negative (NEGATIVE) Urine Urobilinogen 0.2 (0.2) E.U./dL Ur Leukocyte Esterase Negative (NEGATIVE) Urine RBC 0-1/hpf (0-5/HPF) Urine WBC None seen (0-5/HPF) Calcium Oxalate Crystal Occasional H Urine Bacteria None seen (None) Ur Culture Indicated? Cult not indicated Urine Test Negative (Negative) MDM Narrative Medical decision making narrative: negative, urinalysis does show hematuria and calcium oxalate crystals however no signs of an infection. Patient denies any vaginal bleeding. She states that this does not feel exactly like her prior kidney stones. I feel that kidney stone could potentially be causing her symptoms however do not feel that we need to expose her to the radiation for CT scan. No vomiting. She states that really all of her symptoms are in her urethra. And does seem to get better with urinating. She denies any concern for sexually transmitted infections. Plan will be is to see if we can help her symptoms with some viscous lidocaine and peridium. Feel we can hold on any radiologic studies for now. Patient was given return precautions and follow-up instructions. She expressed understanding and agreement. Discharge Plan Departure Patient Disposition: Home Clinical Impression: Dysuria Discharge Date/Time: 01/06/20 01:53 Instructions: DI for Dysuria -- Adult Activity Restrictions/Additional Instructions: The urinalysis today is not consistent with a urinary tract infection. Recommend that we try a topical lidocaine for the next day or so. The peridium that you were given this evening will turn your urine a yellow/orange color. A prescription for this medicine was electronically transmitted to [facility]. Contact your primary provider for follow-up. Return to the emergency department for any new or worsening symptoms Prescriptions: New phenazopyridine [Pyridium] 100 mg tablet 100 mg PO TID PRN (Reason: pain) Qty: 6 RF: 0 No Action pimecrolimus 1 % Cream 1 applic TOPICAL BID RF: 0 ketorolac 10 mg tablet 10 mg PO TID PRN (Reason: pain) Qty: 10 RF: 0 ondansetron 4 mg tablet,disintegrating 4 mg PO Q8H PRN (Reason: nausea and vomiting) Qty: 10 RF: 0 Referrals: Mana Bach ARNP [Primary Care Provider] -
[2020-01-06 00:54] LABS: Bacteria Urine None Seen; WBC Urine None Seen (0-5/HPF)
[2020-01-06 00:55] LABS: Pregnancy Test Urine Negative (Negative)
[2020-01-06 00:57] LABS: Appearance Urine UA CLEAR; Bilirubin Urine UA NEGATIVE (NEGATIVE); Color Urine UA YELLOW; Glucose Urine UA NEGATIVE (Negative); Ketones Urine UA NEGATIVE (NEGATIVE); Leukocyte Esterase Urine UA NEGATIVE (NEGATIVE); Nitrite Urine UA NEGATIVE (Negative); Occult Blood Urine UA 1+ (Negative); Protein Urine UA NEGATIVE (Negative); Urobilinogen Urine UA 0.2 E.U./dL (0.2)
[2020-01-06 01:04] LABS: Calcium Oxalate Crystals Urine Occasional; Culture Indicated Urine Cult Not Indicated; RBC Urine 0-1/HPF (0-5/HPF)
[2020-01-06] MEDS: PHENAZOPYRIDINE 100 MG TABLET PO (01:27)
[2020-01-06] MEDS: LIDOCAINE JELLY 2% 5 ML 1 APPLIC TOP (01:27)
== END 2020-01-06 01:53 | disposition home or self-care (01) ==
PROVIDERS: Emergency Provider Emergency Medicine; PCP Internal Medicine
DX: R30.0 Dysuria (principal); R31.9 Hematuria, unspecified; R39.15 Urgency of urination; R39.11 Hesitancy of micturition
CPT/HCPCS: 81001; 81025; 99283

== ENCOUNTER → 2020-01-08 14:30 | Outpatient (CLI) | payer OTHER, SELFPAY ==
--- NOTE | 2020-01-08 | DI.RAD.S_ITS ---
PROCEDURE: XR KUB INDICATIONS: right flank pain/hematuria TECHNIQUE: One view of the abdomen acquired. COMPARISON: None. FINDINGS: Surgical changes and devices: None. Bowel: Bowel gas pattern is nonobstructive. Fecal stasis throughout the colon is. Soft tissues: No suspicious abdominal calcifications. Visualized solid organ contours appear normal in size. Bones: No suspicious bony lesions. IMPRESSION: No gross renal calcification is seen. Phleboliths are noted in lower pelvis. Mild constipation. No gross free air. Dictated by: Noah Reyna M.D. on 01/08/2020 at 13:56 Approved by: Noah Reyna M.D. on 01/08/2020 at 13:58
== END ==
PROVIDERS: PCP Internal Medicine; Referring Provider Internal Medicine; Visit Provider Internal Medicine
DX: R10.9 Unspecified abdominal pain (principal); R31.9 Hematuria, unspecified; K59.00 Constipation, unspecified; I86.2 Pelvic varices
CPT/HCPCS: 74018

== ENCOUNTER → 2020-01-09 14:46 | Outpatient (CLI) | payer OTHER, SELFPAY ==
--- NOTE | 2020-01-09 | DI.US.S_ITS ---
PROCEDURE: US RENAL COMPLETE INDICATIONS: RIGHT FLANK PAIN TECHNIQUE: Real-time scanning was performed of the kidneys and bladder, with image documentation. COMPARISON: [facility], CT, CT ABDOMEN PELVIS WO CON, 12/16/2019, 11:54. FINDINGS: Kidneys: Kidneys are normal in size. Right kidney measures 10.6 cm long; left kidney measures 11.2 cm long. Right renal cortical thickness is 1.2 cm; left renal cortical thickness is 1.7 cm. Renal cortical echotexture is normal. No hydronephrosis or nephrolithiasis. Mild right renal pyelectasis and the proximal ureter is prominent. Left midpole prominent dromedary hump versus isoechoic mass measuring 1.9 x 2.1 x 2.2 cm. Bladder: Pre-void bladder volume is 420 mL. Post-void residual is 16 mL. Pre-void images demonstrate no intraluminal masses or stones. On pre-void images, bilateral ureteral jets are noted with color Doppler interrogation. (Of note, ureteral jets may not be detectable in up to 25% of cases due to insufficient differences in specific gravity between ureteral and bladder urine). Small shadowing echogenic focus is seen at the level of the right ureterovesical junction which could represent a small distal ureteral stone. Miscellaneous: No free pelvic fluid. IMPRESSION: 1. Prominent left dromedary hump versus isoechoic renal mass. Recommend renal protocol CT for further assessment. 2. There is mild right renal pyelectasis with prominence of the proximal right ureter and possible right UVJ stone which also could be further assessed with CT. Dictated by: Vernon Ni [facility] Interpreted: Jaime Frost MD on 01/09/2020 at 16:27 Approved by: Jaime Frost M.D. on 01/09/2020 at 17:34
== END ==
PROVIDERS: PCP Internal Medicine; Referring Provider Internal Medicine; Visit Provider Internal Medicine
DX: R10.9 Unspecified abdominal pain (principal); M54.5 Low back pain; R31.9 Hematuria, unspecified; N28.9 Disorder of kidney and ureter, unspecified; N13.30 Unspecified hydronephrosis
CPT/HCPCS: 76770

== ENCOUNTER → 2020-01-14 07:28 | Outpatient (CLI) | payer OTHER, SELFPAY ==
--- NOTE | 2020-01-14 07:39 | DI.CT.S_ITS ---
PROCEDURE: CT ABDOMEN WO/W CON INDICATIONS: RIGHT FLANK PAIN TECHNIQUE: Optional 5 mm thick noncontrast images acquired from the diaphragm to the iliac crests. After the administration of intravenous contrast, 5 mm thick images again acquired from the diaphragm to the iliac crests in the arterial and urographic phases. 5 mm thick coronal and sagittal reformats were then acquired. For radiation dose reduction, the following was used: automated exposure control, adjustment of mA and/or kV according to patient size. COMPARISON: [facility], US, US RENAL COMPLETE, 01/09/2020, 14:52. [facility], CR, XR KUB, 01/08/2020, 14:21. [facility], CT, CT ABDOMEN PELVIS WO CON, 12/16/2019, 11:54. FINDINGS: Image quality: Excellent. Lung bases: Lung bases are clear. Heart size is normal. Genitourinary: Kidneys are normal in size and symmetric in enhancement. No solid renal mass. 2 punctate nonobstructing kidney stones on the right. Right kidney extrarenal pelvis. No hydronephrosis. Other solid organs: Liver is normal in size and enhancement. Gallbladder is not dilated. No calcified gallstones. Biliary system is non dilated. Pancreas enhances normally. Spleen is normal in size and enhancement. No adrenal nodules. Peritoneum and bowel: Unenhanced bowel loops are normal in wall thickness and caliber. No free fluid or air. Inflammatory change involving the descending colon has resolved. No abscess. Nodes and vessels: No retroperitoneal or mesenteric adenopathy by size criteria. Aorta and inferior vena cava are normal in caliber. Small accessory superior left renal artery. Bones: No suspicious bony lesions. No vertebral body compression fractures. Miscellaneous: No significant ventral hernias. IMPRESSION: 1. No solid renal mass. 2. No hydronephrosis. Right kidney extrarenal pelvis. 3. Punctate nonobstructing right kidney stones x2 similar to the prior exam. 4. Resolution of the inflammatory change involving the descending colon seen on the prior CT. Dictated by: Allan Martinez M.D. on 01/14/2020 at 10:13 Approved by: Allan Martinez M.D. on 01/14/2020 at 10:20
== END ==
PROVIDERS: PCP Internal Medicine; Referring Provider Internal Medicine; Visit Provider Internal Medicine
DX: R10.9 Unspecified abdominal pain (principal); N20.0 Calculus of kidney
CPT/HCPCS: 74170; Q9967

== ENCOUNTER → 2020-04-30 08:35 | Outpatient (CLI) | payer OTHER, SELFPAY ==
--- NOTE | 2020-04-30 | DI.MG.S_ITS ---
BILATERAL DIGITAL DIAGNOSTIC MAMMOGRAM 3D/2D: 04/30/2020 CLINICAL: Right breast mass and pain. Comparison is made to exams dated: 04/05/2019 mammogram, 03/22/2018 mammogram - [facility], and 01/03/2015 mammogram - [facility]. The tissue of both breasts is heterogeneously dense. This may lower the sensitivity of mammography. No significant masses, calcifications, or other findings are seen in either breast. IMPRESSION: INCOMPLETE: NEEDS ADDITIONAL IMAGING EVALUATION There is no abnormality seen in the right breast to correspond with the area of clinical concern predominantly involving the lateral aspect. No abnormalities seen in area of non-focal pain and intermittent palpable masses not present today; however, ultrasound is recommended to further evaluate and is scheduled to immediately follow this exam. This exam was interpreted at Station ID: [id number]. NOTE: For mammograms, a report in lay terms will be sent to the patient. Approximately 15% of breast malignancies will not be visualized mammographically. In the management of a palpable breast mass, a negative mammogram must not discourage biopsy of a clinically suspicious lesion. Electronically Signed By: Lan Holguin M.D. aty/:04/30/2020 10:07:18 ACR BI-RADS Category 0: Incomplete [id number]
--- NOTE | 2020-04-30 | DI.US.S_ITS ---
LIMITED ULTRASOUND OF RIGHT BREAST AND AXILLA: 04/30/2020 CLINICAL: Palpable right breast lump. No prior exams were available for comparison. Real-time ultrasound of the right breast 9 o'clock, and axilla regions was performed. Villegas scale images of the real-time examination were reviewed. No significant abnormalities were seen sonographically in the right breast or the right axilla. IMPRESSION: NEGATIVE There is no sonographic evidence of malignancy. There is no abnormality seen in the right breast to correspond with the area of clinical concern, palpable abnormality, and pain in the outer aspect, however, recommend clinical follow up for persistent or worsening symptoms, or development of any clinically suspicious findings. A 1 year screening mammogram is recommended. Findings and recommendations were conveyed to the patient during today's evaluation. This exam was interpreted at Station ID: [id number]. Electronically Signed By: Lan Holguin M.D. aty/:04/30/2020 10:40:20 letter sent: Clinical Evaluation Ultrasound BI-RADS: 1 Negative
== END ==
PROVIDERS: PCP Internal Medicine; Referring Provider Internal Medicine; Visit Provider Internal Medicine
DX: R92.8 Other abnormal and inconclusive findings on diagnostic imaging of breast (principal); N64.4 Mastodynia; N63.10 Unspecified lump in the right breast, unspecified quadrant
CPT/HCPCS: 76642; 77066; G0279

== ENCOUNTER → 2020-07-10 16:43 | Outpatient (CLI) | payer OTHER, SELFPAY ==
[2020-07-10] MEDS: COVID-19 VACC #1, MRNA(MOD) 100 MCG/0.5 ML VIAL IM (16:50)
== END ==
PROVIDERS: PCP Internal Medicine; Visit Provider Internal Medicine
DX: Z23 Encounter for immunization (principal)
CPT/HCPCS: 0011A; 91301

== ENCOUNTER → 2020-08-07 14:14 | Outpatient (CLI) | payer OTHER, SELFPAY ==
[2020-08-07] MEDS: COVID-19 VACC #2, MRNA(MOD) 100 MCG/0.5 ML VIAL IM (14:20)
== END ==
PROVIDERS: PCP Internal Medicine; Visit Provider Internal Medicine
DX: Z23 Encounter for immunization (principal)
CPT/HCPCS: 0012A; 91301

== ENCOUNTER → 2020-09-28 09:44 | Outpatient (CLI) | payer OTHER, SELFPAY ==
--- NOTE | 2020-09-28 09:46 | DI.RAD.S_ITS ---
PROCEDURE: XR TIBIA FUBULA RT 2V INDICATIONS: painful right tibfib and ankle TECHNIQUE: 2 views of the tibia and fibula were acquired. COMPARISON: [facility], CR, XR ANKLE RT MIN 3V, 09/28/2020, 9:47. FINDINGS: Bones: There is a small ossific fragment overlying the proximal margin of the head of the right fibula. This is age-indeterminate. No significant overlying soft tissue edema. Otherwise, no other fractures are identified in the tibia or fibula. Normal alignment. Soft tissues: No suspicious soft tissue calcifications or masses. IMPRESSION: Small ossific fragment overlying the proximal margin of the head of the right fibula. This is age indeterminate and probably chronic. Recommend correlation with examination for point tenderness in this region. Otherwise, no acute radiographic abnormalities identified in the right tibia/fibula. Dictated by: Lan Holguin M.D. on 09/28/2020 at 10:42 Approved by: Lan Holguin M.D. on 09/28/2020 at 10:45
--- NOTE | 2020-09-28 09:46 | DI.RAD.S_ITS ---
PROCEDURE: XR ANKLE RT MIN 3V INDICATIONS: painful TECHNIQUE: 3 views of the ankle were acquired. COMPARISON: None. FINDINGS: Bones: No fractures or dislocations. Ankle mortise is normally aligned. No suspicious bony lesions. Soft tissues: No tibiotalar joint effusion. Achilles tendon appears normal. IMPRESSION: Right ankle without acute fracture or dislocation. If there are persistent symptoms or clinical suspicion for pathology, then repeat radiographs or advanced imaging (CT, MRI or bone scan) may be considered for further evaluation. Dictated by: Lan Holguin M.D. on 09/28/2020 at 10:45 Approved by: Lan Holguin M.D. on 09/28/2020 at 10:45
== END ==
PROVIDERS: PCP Internal Medicine; Referring Provider Physician Assistant; Visit Provider Physician Assistant
DX: M25.571 Pain in right ankle and joints of right foot (principal)
CPT/HCPCS: 73590; 73610